=== PATIENT | female | born 1950 | race Hispanic/Latino ===

== ENCOUNTER 2017-09-10 17:56 | Emergency (ER) | payer MEDICARE ==
[~2017-09-10] VITALS: Ht 167.6 cm; Wt 100.0 kg
[~2017-09-10 17:56] MED LIST: AMIODARONE200 MG PO; CALCIUM + D PO; CELEBREX100 M1 PO; CORDARONE/200 MG/TAB PO; COUMADIN5 MG PO; DIOVAN80 MG PO; ESCITALOPRAM OX10 MG PO; KLOR-CON M2020 MEQ PO; LASIX 40 MG40 MG/TAB PO; LOPRESSOR25 MG PO; METFORMIN500 M1 PO; NAPROSYN500 MG PO; PANTOPRAZOLE SO40 MG PO; SIMVASTATIN40 MG PO; XARELTO10 MG PO
[2017-09-10 18:23] VITALS: BP 131/65
== END 2017-09-10 18:30 | disposition home or self-care (01) ==
LOC: ED 17:56
DX: H11.32 Conjunctival hemorrhage, left eye (principal); E11.9 Type 2 diabetes mellitus without complications; I48.91 Unspecified atrial fibrillation; I50.9 Heart failure, unspecified